=== PATIENT | male | born 1970 | race Two or more races ===

== ENCOUNTER 2022-12-21 15:38 | Inpatient (IN) | payer OTHER ==
[~2022-12-21] VITALS: Ht 175.3 cm; Wt 147.0 kg
[2022-12-21] MEDS ORDERED: IBUPROFEN 600 MG TABLET PO ONE (19:45)
[2022-12-21] MEDS ORDERED: VANCOMYCIN 1GM/WATER(PEG/NADA) 200 ML IV ONE (20:30)
[2022-12-21 20:53] LABS: BASOPHILS % (AUTO) 0.5 % (0.0-2.0); EOSINOPHILS % (AUTO) 1.1 % (1.0-6.0); HEMATOCRIT 41.4 % (41-53); HEMOGLOBIN 13.7 g/dL (13.5-17.5); LYMPHOCYTES # (AUTO) 1.7 K/uL (1.0-4.8); LYMPHOCYTES % (AUTO) 18.2 % (22.0-44.0); MEAN CORPUSCULAR HEMOGLOBIN 28.5 pg (26.0-34.0); MEAN CORPUSCULAR VOLUME 86 fL (80-100); MONOCYTES # (AUTO) 0.6 K/uL (0.1-1.0); MONOCYTES % (AUTO) 6.2 % (2.0-9.0); NEUTROPHILS # (AUTO) 6.8 K/uL (1.8-7.7); PLATELET COUNT (AUTO) 253 K/uL (150-450); RED CELL DISTRIBUTION WIDTH 14.5 % (11.5-14.5)
[2022-12-21 21:06] LABS: ANION GAP 12 mmol/L (8-16); CALCIUM, TOTAL 9.6 mg/dL (8.8-10.5); CARBON DIOXIDE 25 mmol/L (22-29); CHLORIDE 100 mmol/L (98-107); CREATININE 1.19 mg/dL (0.60-1.30); GLOMERULAR FILTR. RATE CALC > 60 mL/min (>60); GLUCOSE,RANDOM 139 mg/dL (70-110); POTASSIUM 4.7 mmol/L (3.5-5.1); SODIUM SERUM 137 mmol/L (136-145)
[2022-12-21 21:12] LABS: ALANINE AMINOTRANSFERASE 32 U/L (12-78); ALBUMIN 3.1 g/dL (3.4-5.0); ALKALINE PHOSPHATASE 78 U/L (46-116); ASPARTATE AMINOTRANSFERASE 22 U/L (15-37); BILIRUBIN,TOTAL 0.7 mg/dL (0.1-1.0); TOTAL PROTEIN, SERUM 8.4 g/dL (6.4-8.2)
[2022-12-21 21:15] LABS: LACTIC ACID 0.9 mmol/L (0.4-2.0)
[2022-12-21] MEDS ORDERED: ACETAMINOPHEN 325 MG TABLET PO PRN (21:30)
[2022-12-21] MEDS ORDERED: ONDANSETRON HCL 4 MG/2 ML VIAL IVP PRN (21:30)
[2022-12-21] MEDS ORDERED: KETOROLAC TROMETHAMINE 30 MG/ML VIAL IVP PRN (22:00)
[2022-12-21] MEDS ORDERED: ACETAMINOPHEN 500 MG TABLET PO SCH (22:00)
[2022-12-21 22:01] VITALS: BP 126/70
[2022-12-21] MEDS ORDERED: SODIUM CHLORIDE 0.9% 500 ML IV ONE (23:09)
[2022-12-21] MEDS: ACETAMINOPHEN 500 MG TABLET PO SCH (23:13)
[2022-12-21] MEDS: CefTRIAXone 1 GM/DEXTROSE 50 ML IV SCH (23:14)
[2022-12-21] MEDS: RINGERS SOLUTION,LACTATED 1,000 ML IV SCH (23:15)
[2022-12-21] MEDS ORDERED: DEXTROSE 50%-WATER 25 GM/50 ML SYRINGE IVP PRN (23:30)
[2022-12-22] MEDS ORDERED: VANCOMYCIN 1GM/WATER(PEG/NADA) 200 ML IV ONE
[2022-12-22 04:50] VITALS: BP 111/73
[2022-12-22 06:51] LABS: GLUCOMETER DEV NAME(LOC) 4E.2; GLUCOSE,POINT OF CARE 206 MG/DL (70-110)
[2022-12-22 06:54] LABS: BASOPHILS % (AUTO) 0.4 % (0.0-2.0); EOSINOPHILS % (AUTO) 2.1 % (1.0-6.0); HEMATOCRIT 38.9 % (41-53); HEMOGLOBIN 12.7 g/dL (13.5-17.5); LYMPHOCYTES # (AUTO) 1.8 K/uL (1.0-4.8); LYMPHOCYTES % (AUTO) 22.1 % (22.0-44.0); MEAN CORPUSCULAR HEMOGLOBIN 28.4 pg (26.0-34.0); MEAN CORPUSCULAR HGB CONC 32.6 G/dL (31.0-37.0); MEAN CORPUSCULAR VOLUME 87 fL (80-100); MONOCYTES # (AUTO) 0.6 K/uL (0.1-1.0); MONOCYTES % (AUTO) 7.8 % (2.0-9.0); NEUTROPHILS # (AUTO) 5.5 K/uL (1.8-7.7); NEUTROPHILS % (AUTO) 67.6 % (40.0-70.0); PLATELET COUNT (AUTO) 217 K/uL (150-450); RED BLOOD CELL COUNT(AUTO) 4.46 MIL/uL (4.50-5.90); RED CELL DISTRIBUTION WIDTH 14.3 % (11.5-14.5)
[2022-12-22 07:08] LABS: ANION GAP 12 mmol/L (8-16); CALCIUM, TOTAL 9.1 mg/dL (8.8-10.5); CARBON DIOXIDE 21 mmol/L (22-29); CHLORIDE 101 mmol/L (98-107); CREATININE 0.93 mg/dL (0.60-1.30); GLOMERULAR FILTR. RATE CALC > 60 mL/min (>60); GLUCOSE,RANDOM 172 mg/dL (70-110); POTASSIUM 4.2 mmol/L (3.5-5.1); SODIUM SERUM 134 mmol/L (136-145)
[2022-12-22 07:10] LABS: GLUCOMETER DEV NAME(LOC) 6N.2B; GLUCOSE,POINT OF CARE 182 MG/DL (70-110)
[2022-12-22] MEDS: VANCOMYCIN HCL 1.5 GM in DEXTROSE 5%-WATER 250 ML IV SCH ×2 (07:37→20:51)
[2022-12-22 07:46] VITALS: BP 119/75
[2022-12-22] MEDS ORDERED: IOHEXOL 350 MG/ML 100 ML VIAL ONE (07:46)
[2022-12-22] MEDS ORDERED: SODIUM CHLORIDE 0.9% 100 ML ONE (07:46)
[2022-12-22] MEDS: ACETAMINOPHEN 500 MG TABLET PO SCH ×3 (07:59→23:50)
[2022-12-22] MEDS: INSULIN LISPRO 100 UNITS/ML SQ PRN ×3 (12:42→20:59)
[2022-12-22 15:12] VITALS: BP 95/77
[2022-12-22] MEDS: RINGERS SOLUTION,LACTATED 1,000 ML IV SCH (17:06)
[2022-12-22 19:35] VITALS: BP 103/65
[2022-12-22 19:46] LABS: GLUCOMETER DEV NAME(LOC) 6N.2B; GLUCOSE,POINT OF CARE 189 MG/DL (70-110)
[2022-12-22 19:46] LABS: GLUCOMETER DEV NAME(LOC) 6N.2B; GLUCOSE,POINT OF CARE 235 MG/DL (70-110)
[2022-12-22] MEDS: INSULIN GLARGINE,HUM.REC.ANLOG 100 UNITS/ML SQ SCH (20:59)
[2022-12-22] MEDS: CefTRIAXone 1 GM/DEXTROSE 50 ML IV SCH (23:49)
[2022-12-23 04:10] VITALS: BP 104/68
[2022-12-23] MEDS: INSULIN LISPRO 100 UNITS/ML SQ PRN ×4 (06:18→20:40)
[2022-12-23 06:45] LABS: GLUCOMETER DEV NAME(LOC) 6N.1; GLUCOSE,POINT OF CARE 173 MG/DL (70-110)
[2022-12-23 07:21] LABS: ANION GAP 9 mmol/L (8-16); CALCIUM, TOTAL 8.9 mg/dL (8.8-10.5); CARBON DIOXIDE 24 mmol/L (22-29); CHLORIDE 103 mmol/L (98-107); CREATININE 0.91 mg/dL (0.60-1.30); GLOMERULAR FILTR. RATE CALC > 60 mL/min (>60); GLUCOSE,RANDOM 168 mg/dL (70-110); POTASSIUM 4.8 mmol/L (3.5-5.1); SODIUM SERUM 136 mmol/L (136-145)
[2022-12-23 07:40] VITALS: BP 112/70
[2022-12-23] MEDS: ACETAMINOPHEN 500 MG TABLET PO SCH (08:39)
[2022-12-23] MEDS: VANCOMYCIN HCL 1.5 GM in DEXTROSE 5%-WATER 250 ML IV SCH ×2 (08:39→20:34)
[2022-12-23] MEDS ORDERED: ACETAMINOPHEN 325 MG TABLET PO PRN (11:15)
[2022-12-23] MEDS: CELECOXIB 100 MG CAPSULE PO SCH ×2 (12:14→20:35)
[2022-12-23 15:46] VITALS: BP 108/70
[2022-12-23 18:00] LABS: SPECIMENTYPE,BODY FLUID SYNOVIAL
[2022-12-23 19:15] VITALS: BP 102/71
[2022-12-23 19:19] LABS: APPEARANCE,SPUN,BODY FLUID CLOUDY (CLEAR); APPEARANCE,UNSPUN,BODY FLUID TURBID (CLEAR)
[2022-12-23 19:21] LABS: BASOPHILS,BODY FLUID 0 %; COLOR,BODY FLUID PINK (LT YELLOW); EOSINOPHILS,BF (ANAL) 0 %; TOTAL VOLUME,BODY FLUID 30 mL; WBC, BODY FLUID 1564000 /cu. mm.
[2022-12-23 19:24] LABS: CRYSTALS, SYNOVIAL FLUID None Seen (None Seen); LYMPHOCYTES,BODY FLUID 5 %; MONOCYTES,BODY FLUID 10 %; NEUTROPHILS,BODY FLUID 85 %
[2022-12-23 19:36] LABS: GLUCOMETER DEV NAME(LOC) 6S.2; GLUCOSE,POINT OF CARE 222 MG/DL (70-110)
[2022-12-23] MEDS: INSULIN GLARGINE,HUM.REC.ANLOG 100 UNITS/ML SQ SCH (20:41)
[2022-12-23 23:02] LABS: GLUCOMETER DEV NAME(LOC) 4E.2; GLUCOSE,POINT OF CARE 215 MG/DL (70-110)
[2022-12-23] MEDS: CefTRIAXone 1 GM/DEXTROSE 50 ML IV SCH (23:02)
[2022-12-24 04:17] VITALS: BP 103/66
[2022-12-24] MEDS: INSULIN LISPRO 100 UNITS/ML SQ PRN ×3 (06:17→21:18)
[2022-12-24 06:43] LABS: VANCOMYCIN,RANDOM 13.7 mcg/mL (25.0-50.0)
[2022-12-24 07:15] LABS: ANION GAP 7 mmol/L (8-16); CALCIUM, TOTAL 8.9 mg/dL (8.8-10.5); CARBON DIOXIDE 25 mmol/L (22-29); CHLORIDE 102 mmol/L (98-107); CREATININE 0.91 mg/dL (0.60-1.30); GLOMERULAR FILTR. RATE CALC > 60 mL/min (>60); GLUCOSE,RANDOM 143 mg/dL (70-110); POTASSIUM 4.7 mmol/L (3.5-5.1); SODIUM SERUM 134 mmol/L (136-145)
[2022-12-24 07:31] VITALS: BP 117/65
[2022-12-24] MEDS: CELECOXIB 100 MG CAPSULE PO SCH ×2 (08:21→21:15)
[2022-12-24] MEDS: VANCOMYCIN HCL 1.5 GM in DEXTROSE 5%-WATER 250 ML IV SCH (08:21)
[2022-12-24] MEDS ORDERED: SODIUM CHLORIDE 0.9% 250 ML IV ONE (08:27)
[2022-12-24 12:35] LABS: GLUCOMETER DEV NAME(LOC) 4E.2; GLUCOSE,POINT OF CARE 186 MG/DL (70-110)
[2022-12-24 15:36] VITALS: BP 124/83
[2022-12-24] MEDS: VANCOMYCIN 1GM/WATER(PEG/NADA) 200 ML IV SCH ×2 (15:38→23:07)
[2022-12-24 20:36] LABS: GLUCOMETER DEV NAME(LOC) 6S.2; GLUCOSE,POINT OF CARE 176 MG/DL (70-110)
[2022-12-24 20:36] LABS: GLUCOMETER DEV NAME(LOC) 6N.1; GLUCOSE,POINT OF CARE 266 MG/DL (70-110)
[2022-12-24 20:36] LABS: GLUCOMETER DEV NAME(LOC) 6N.1; GLUCOSE,POINT OF CARE 144 MG/DL (70-110)
[2022-12-24 20:36] LABS: GLUCOMETER DEV NAME(LOC) 6N.1; GLUCOSE,POINT OF CARE 263 MG/DL (70-110)
[2022-12-24] MEDS: INSULIN GLARGINE,HUM.REC.ANLOG 100 UNITS/ML SQ SCH (21:19)
[2022-12-24 21:41] VITALS: BP 136/84
[2022-12-25 04:41] VITALS: BP 129/63
[2022-12-25 05:56] LABS: GLUCOMETER DEV NAME(LOC) 6S.2; GLUCOSE,POINT OF CARE 185 MG/DL (70-110)
[2022-12-25] MEDS: INSULIN LISPRO 100 UNITS/ML SQ PRN ×2 (06:07→20:27)
[2022-12-25 07:28] LABS: ANION GAP 10 mmol/L (8-16); CALCIUM, TOTAL 9.3 mg/dL (8.8-10.5); CARBON DIOXIDE 28 mmol/L (22-29); CHLORIDE 99 mmol/L (98-107); CREATININE 0.97 mg/dL (0.60-1.30); GLOMERULAR FILTR. RATE CALC > 60 mL/min (>60); GLUCOSE,RANDOM 162 mg/dL (70-110); SODIUM SERUM 137 mmol/L (136-145)
[2022-12-25 08:00] VITALS: BP 136/65
[2022-12-25 08:36] LABS: GLUCOMETER DEV NAME(LOC) 6S.2; GLUCOSE,POINT OF CARE 152 MG/DL (70-110)
[2022-12-25] MEDS: VANCOMYCIN 1GM/WATER(PEG/NADA) 200 ML IV SCH ×3 (09:14→23:46)
[2022-12-25] MEDS: CELECOXIB 100 MG CAPSULE PO SCH ×2 (09:14→20:19)
[2022-12-25 15:04] VITALS: BP 123/88
[2022-12-25 18:32] LABS: GLUCOMETER DEV NAME(LOC) 6N.2B; GLUCOSE,POINT OF CARE 175 MG/DL (70-110)
[2022-12-25 18:32] LABS: GLUCOMETER DEV NAME(LOC) 6N.1; GLUCOSE,POINT OF CARE 154 MG/DL (70-110)
[2022-12-25 20:01] VITALS: BP 116/74
[2022-12-25] MEDS: INSULIN GLARGINE,HUM.REC.ANLOG 100 UNITS/ML SQ SCH (20:26)
[2022-12-25 23:01] LABS: GLUCOMETER DEV NAME(LOC) 6N.1; GLUCOSE,POINT OF CARE 228 MG/DL (70-110)
[2022-12-26 05:12] VITALS: BP 112/67
[2022-12-26] MEDS: INSULIN LISPRO 100 UNITS/ML SQ PRN (06:20)
[2022-12-26 07:36] LABS: ANION GAP 9 mmol/L (8-16); CALCIUM, TOTAL 9.6 mg/dL (8.8-10.5); CARBON DIOXIDE 26 mmol/L (22-29); CHLORIDE 102 mmol/L (98-107); CREATININE 0.97 mg/dL (0.60-1.30); GLOMERULAR FILTR. RATE CALC > 60 mL/min (>60); GLUCOSE,RANDOM 157 mg/dL (70-110); POTASSIUM 5.1 mmol/L (3.5-5.1); SODIUM SERUM 137 mmol/L (136-145)
[2022-12-26 07:47] LABS: VANCOMYCIN,RANDOM 16.6 mcg/mL (25.0-50.0)
[2022-12-26 08:07] VITALS: BP 112/72
[2022-12-26] MEDS: VANCOMYCIN 1GM/WATER(PEG/NADA) 200 ML IV SCH (08:08)
[2022-12-26] MEDS: CELECOXIB 100 MG CAPSULE PO SCH (08:08)
[2022-12-26 17:32] LABS: GLUCOMETER DEV NAME(LOC) 6N.2B; GLUCOSE,POINT OF CARE 144 MG/DL (70-110)
[2022-12-30 12:07] LABS: LDH,BODY FLUID,REF >18000 IU/L
== END 2022-12-26 12:15 | DRG 558 ==
LOC: EMS 15:39 → 6S 21:00
PROVIDERS: ADMIT Internal Medicine; ATTEND Internal Medicine
PROC: 0S9C3ZX Drainage of Right Knee Joint, Percutaneous Approach, Diagnostic (ICD-10-PCS; principal; 2022-12-23)
DX: M70.41 Prepatellar bursitis, right knee (principal); E44.0 Moderate protein-calorie malnutrition; L03.115 Cellulitis of right lower limb; R65.10 Systemic inflammatory response syndrome (SIRS) of non-infectious origin without acute organ dysfunction; G61.0 Guillain-Barre syndrome; Z68.42 Body mass index [BMI] 45.0-49.9, adult; M25.461 Effusion, right knee; E66.01 Morbid (severe) obesity due to excess calories; E11.65 Type 2 diabetes mellitus with hyperglycemia; Y93.89 Activity, other specified
CPT/HCPCS: 73701; 80048; 80053; 80202; 82042; 82945; 82962; 83036; 83605; 83615; 83735; 84157; 85025; 87040; 87075; 87186; 87205; 89051; 89060; 97116; 97162; 99285; J0696; J1815; J3370; J7040; J7050; J7060; J7120; Q9967